=== PATIENT | female | born 1995 | race Caucasian/White ===

== ENCOUNTER → 2017-08-20 | Emergency (ER) | payer OTHER ==
[~2017-08-20] VITALS: Ht 160 cm; Wt 81.7 kg
[2017-08-20 12:40] VITALS: BP 100/55
== END ==
LOC: ER 12:34
DX: S61.211A Laceration without foreign body of left index finger without damage to nail, initial encounter (principal); F17.210 Nicotine dependence, cigarettes, uncomplicated; W26.8XXA Contact with other sharp object(s), not elsewhere classified, initial encounter; Y93.89 Activity, other specified; Y92.89 Other specified places as the place of occurrence of the external cause; Y99.8 Other external cause status